=== PATIENT | female | born 1970 | race Caucasian/White ===

== ENCOUNTER 2019-07-02 15:23 | Emergency (ER) | payer BC, OTHER ==
[~2019-07-02] VITALS: Ht 154.9 cm; Wt 63.5 kg
[2019-07-02 15:40] VITALS: Ht 154.9 cm; Wt 63.5 kg
[2019-07-02 17:42] VITALS: BP 112/70
== END 2019-07-02 17:42 | disposition home or self-care (01) ==
LOC: ED 15:23
DX: H66.92 Otitis media, unspecified, left ear (principal); F11.23 Opioid dependence with withdrawal; T40.2X5A Adverse effect of other opioids, initial encounter; E11.9 Type 2 diabetes mellitus without complications; I10 Essential (primary) hypertension; E78.00 Pure hypercholesterolemia, unspecified; Y92.89 Other specified places as the place of occurrence of the external cause
CPT/HCPCS: 82962; J1885; J2405